=== PATIENT | male | born 1985 | race Two or more races ===

== ENCOUNTER 2019-03-28 20:37 | Emergency (ER) | payer OTHER ==
[~2019-03-28] VITALS: Ht 172.7 cm; Wt 72.7 kg
[2019-03-28 20:40] VITALS: BP 119/69
[2019-03-28] MEDS ORDERED: BENZONATATE 100 MG CAPSULE ONE (21:26)
[2019-03-28] MEDS ORDERED: BENZONATATE 100 MG CAPSULE PO ONE (21:30)
--- NOTE | 2019-03-28 21:30 | NUR ---
MEDICATED PER EMAR EDUCATED ON POC/RECCOMNDATION FOR CARE AT HOME
== END 2019-03-28 22:08 ==
LOC: ED 21:45
DX: R05 Cough (principal); R09.81 Nasal congestion; J34.89 Other specified disorders of nose and nasal sinuses; Z87.891 Personal history of nicotine dependence
CPT/HCPCS: 71046; 99283